=== PATIENT | male | born 1950 | race African-American/Black ===

== ENCOUNTER 2019-09-21 15:04 | Emergency (ER) | payer MEDICARE, MEDICAID ==
[~2019-09-21] VITALS: Ht 170.2 cm; Wt 68.0 kg
[2019-09-21 15:14] VITALS: BP 198/85
[2019-09-21] MEDS ORDERED: KETOROLAC 60MG/2ML VIAL IM ONE (17:00)
[2019-09-21] MEDS ORDERED: IBUPROFEN 600MG TABLET PO ONE (17:15)
== END 2019-09-21 17:25 | disposition home or self-care (01) ==
LOC: ER 15:04
DX: S33.5XXA Sprain of ligaments of lumbar spine, initial encounter (principal); S13.8XXA Sprain of joints and ligaments of other parts of neck, initial encounter; V49.59XA Passenger injured in collision with other motor vehicles in traffic accident, initial encounter; Y93.89 Activity, other specified; Y92.89 Other specified places as the place of occurrence of the external cause; Y99.8 Other external cause status; E11.9 Type 2 diabetes mellitus without complications; I10 Essential (primary) hypertension
CPT/HCPCS: 99282; 99283

== ENCOUNTER 2020-05-04 08:50 | Emergency (ER) | payer MEDICARE, MEDICAID ==
[~2020-05-04] VITALS: Ht 170.2 cm; Wt 60.0 kg
[2020-05-04] MEDS ORDERED: ACETAMINOPHEN 500MG TABLET PO ONE (09:30)
[2020-05-04 11:40] VITALS: BP 155/88
== END 2020-05-04 11:41 | disposition home or self-care (01) ==
LOC: ER 09:15
DX: S01.83XA Puncture wound without foreign body of other part of head, initial encounter (principal); S20.213A Contusion of bilateral front wall of thorax, initial encounter; Y08.89XA Assault by other specified means, initial encounter; Y93.89 Activity, other specified; Y92.89 Other specified places as the place of occurrence of the external cause; Y99.8 Other external cause status; E11.9 Type 2 diabetes mellitus without complications; Z86.73 Personal history of transient ischemic attack (TIA), and cerebral infarction without residual deficits
CPT/HCPCS: 70486; 71111; 99285

== ENCOUNTER 2021-09-28 11:41 | Emergency (ER) | payer MEDICARE, OTHER ==
[~2021-09-28] VITALS: Ht 170.2 cm; Wt 69.0 kg
[2021-09-28 13:00] VITALS: BP 151/84
[2021-09-28] MEDS ORDERED: SODIUM CHLORIDE 0.9% 1,000 ML IV ONE (13:30)
[2021-09-28 14:32] LABS: CLARITY URINE CLEAR (CLEAR); COLOR URINE YELLOW (YELLOW); KETONES URINE TRACE (NEGATIVE); LEUKOCYTE ESTERASE URINE NEGATIVE (NEGATIVE); NITRITE URINE NEGATIVE (NEGATIVE); OCCULT BLOOD URINE NEGATIVE (NEGATIVE); PROTEIN URINE NEGATIVE (NEGATIVE); SPECIFIC GRAVITY URINE 1.038 (1.005-1.030)
[2021-09-28 14:59] LABS: *AMPHETAMINES SCREEN URINE NEGATIVE (NEGATIVE); *BARBITURATES SCREEN URINE NEGATIVE (NEGATIVE); *BENZODIAZEPINES SCREEN URINE NEGATIVE (NEGATIVE); *COCAINE SCREEN URINE NEGATIVE (NEGATIVE); CANNABINOID URINE SCREEN NEGATIVE (NEGATIVE); METHADONE URINE SCREEN NEGATIVE (NEGATIVE); OPIATES URINE SCREEN NEGATIVE (NEGATIVE); PHENCYCLIDINE URINE SCREEN NEGATIVE (NEGATIVE)
== END 2021-09-28 14:45 | disposition left against medical advice (07) ==
LOC: ER 11:41
DX: R55 Syncope and collapse (principal); E11.9 Type 2 diabetes mellitus without complications; I10 Essential (primary) hypertension; F17.210 Nicotine dependence, cigarettes, uncomplicated; Z86.73 Personal history of transient ischemic attack (TIA), and cerebral infarction without residual deficits
CPT/HCPCS: 71045; 80305; 81003; 99283; J7030